=== PATIENT | male | born 1975 | race Two or more races ===

== ENCOUNTER 2018-09-22 18:44 | Emergency (ER) | payer SELFPAY ==
[~2018-09-22] VITALS: Ht 175.3 cm; Wt 75.0 kg
[2018-09-22 18:46] VITALS: BP 153/83
== END 2018-09-22 19:45 | disposition left against medical advice (07) ==
LOC: ER 18:44
DX: R55 Syncope and collapse (principal); F17.210 Nicotine dependence, cigarettes, uncomplicated; F12.90 Cannabis use, unspecified, uncomplicated
CPT/HCPCS: 99283